=== PATIENT | female | born 1985 | race Caucasian/White ===

== ENCOUNTER 2020-02-09 08:32 | Emergency (ER) | payer MEDICAID ==
[~2020-02-09] VITALS: Ht 170.2 cm; Wt 93.5 kg
[2020-02-09 08:34] VITALS: BP 167/95
== END 2020-02-09 09:14 | disposition home or self-care (01) ==
LOC: ED 09:01
DX: K02.9 Dental caries, unspecified (principal); H65.01 Acute serous otitis media, right ear; Z87.891 Personal history of nicotine dependence
CPT/HCPCS: 99283

== ENCOUNTER 2020-04-03 12:25 | Emergency (ER) | payer SELFPAY ==
[~2020-04-03] VITALS: Ht 170.2 cm; Wt 98.8 kg
--- NOTE | 2020-04-03 12:56 | NUR ---
first contact with pt. pt stated "i have something on the top of my mouth and it hurts. i also have something on left nose as well. i have a chronic migraine and hurts really bad." pt's aox4. resps even and unlabored. pt denies any other sx. bp/spo2 monitors in place. call light within reach.
[2020-04-03] MEDS ORDERED: CEFAZOLIN 1,000 MG ONE (13:13)
[2020-04-03] MEDS ORDERED: HYDROmorphone 1 MG/ML, 1ML INJ ONE (13:21)
[2020-04-03] MEDS ORDERED: CEFAZOLIN PMX 1GM/50ML 50 ML ONE (13:21)
[2020-04-03] MEDS ORDERED: KETOROLAC 30 MG/1 ML ONE (13:21)
[2020-04-03] MEDS ORDERED: HYDROmorphone 1 MG/ML, 1ML INJ IVPush PRN (13:30)
[2020-04-03] MEDS ORDERED: SODIUM CHLORIDE FLUSH 10ML SYR IVF ONE (13:30)
[2020-04-03] MEDS ORDERED: KETOROLAC 30 MG/1 ML IVPush ONE (13:30)
[2020-04-03] MEDS ORDERED: CEFAZOLIN 1,000 MG IM ONE (13:30)
[2020-04-03] MEDS ORDERED: CEFAZOLIN PMX 1GM/50ML 50 ML IV ONE (13:30)
--- NOTE | 2020-04-03 13:44 | NUR ---
PIV EST ON R HAND WITH NO COMPLICATIONS. PT MEDICATED PER EMAR. PT TOLERATED WELL. ABX INFUSING AT THIS TIME. NO BC NEEDED PER EDMD.
[2020-04-03 14:59] VITALS: BP 182/88
--- NOTE | 2020-04-03 15:11 | NUR ---
PT RESTING IN [facility]. PT STATED'I FEEL MUCH BETTER." PT'S AOX4. RESPS EVEN AND UNLABORED.
--- NOTE | 2020-04-03 15:33 | NUR ---
Patient given discharge instructions and they have confirmed that they understand the instructions. Patient ambulatory with steady gait.
== END 2020-04-03 15:32 | disposition home or self-care (01) ==
LOC: ED 14:09
DX: K04.7 Periapical abscess without sinus (principal); K08.89 Other specified disorders of teeth and supporting structures; F17.210 Nicotine dependence, cigarettes, uncomplicated
CPT/HCPCS: 96365; 96375; 99284; 99406; J0690; J1170; J1885

== ENCOUNTER 2020-05-07 20:42 | Emergency (ER) | payer SELFPAY ==
[~2020-05-07] VITALS: Ht 170.2 cm; Wt 101.0 kg
[2020-05-07 20:48] VITALS: BP 154/102
--- NOTE | 2020-05-07 21:00 | NUR ---
SADA AMARAL AT BEDSIDE FOR ASSESSMENT
[2020-05-07] MEDS ORDERED: HYDROcodone/APAP 5/325 TABLET ONE (21:03)
[2020-05-07] MEDS ORDERED: AMOXICILLIN/CLAV 875-125MG TABLET ONE (21:03)
--- NOTE | 2020-05-07 21:04 | NUR ---
VERBAL ORDER FROM SADA AMARAL FOR AUGMENTIN 875 AND NORCO 5 AT THIS TIME. PT MEDICATED PER MAR
[2020-05-07] MEDS ORDERED: HYDROcodone/APAP 5/325 TABLET PO STA (21:05)
[2020-05-07] MEDS ORDERED: AMOXICILLIN/CLAV 875-125MG TABLET PO STA (21:05)
== END 2020-05-07 22:53 | disposition home or self-care (01) ==
LOC: ED 21:13
DX: K08.89 Other specified disorders of teeth and supporting structures (principal); R05 Cough; H92.01 Otalgia, right ear; F17.200 Nicotine dependence, unspecified, uncomplicated
CPT/HCPCS: 99283